=== PATIENT | male | born 1985 | race Caucasian/White ===

== ENCOUNTER 2019-01-21 06:54 | Emergency (ER) | payer OTHER ==
[~2019-01-21] VITALS: Ht 170.2 cm; Wt 72.6 kg
[2019-01-21 07:34] LABS: CLARITY,URINE CLEAR; COLOR,URINE DARK YELLOW; GLUCOSE, URINE (UA) NEGATIVE (NEGATIVE); KETONES,URINE TRACE (NEGATIVE); PH,URINE 7.5 (5-9); PROTEIN,URINE NEGATIVE (NEGATIVE)
[2019-01-21 07:35] LABS: BACTERIA,URINE TRACE /HPF; BILIRUBIN,URINE NEGATIVE (NEGATIVE); LEUKOCYTE ESTERASE ,URINE NEGATIVE (NEGATIVE); NITRITE,URINE NEGATIVE (NEGATIVE); SQUAMOUS EPITHELIAL CELL,UR RARE /HPF; UROBILINOGEN,URINE 0.2 MG/DL (NORMAL)
[2019-01-21 07:45] VITALS: BP 129/94
--- NOTE | 2019-01-21 08:06 | ED Abdominal Pain ---
General Chief Complaint: Abdominal/GI Problems Stated Complaint: ABD PAIN Nursing Triage Note: Patient reports sudden onset of right lower quadrant abdominal pain this morning at 0600 while running. He states the pain has nearly subsided, but is concerned it may be caused by his appendix. Sepsis Screen: No Definite Risk Source of Information: Patient Exam Limitations: No Limitations History of Present Illness Date Seen by Provider: Jan 21, 2019 Time Seen by Provider: 07:20 Initial Comments Patient is a 33-year-old male who presents with rapid onset right lower quadrant pain while running. Symptom onset was one hour prior to the arrival. Pain was initially radiates severe and associated with the urge to urinate. Symptoms have not resolved. Patient denies hematuria, testicular pain, flank pain. No nausea vomiting or sweats. No constipation or diarrhea. No other acute symptoms or complaints Timing/Duration: 1-3 Hours Severity/Quality: Severe Location: RLQ Radiation: No Radiation Activities at Onset: Activity Associated Symptoms: Denies Symptoms Allergies and Home Medications Allergies Coded Allergies: No Known Drug Allergies (Unverified , 01/21/19) Patient Home Medication List Home Medication List Reviewed: Yes Review of Systems Review of Systems Constitutional: no symptoms reported EENTM: No Symptoms Reported, See HPI Respiratory: No Symptoms Reported Gastrointestinal: See HPI Genitourinary: See HPI Musculoskeletal: no symptoms reported Skin: no symptoms reported Psychiatric/Neurological: No Symptoms Reported Endocrine: No Symptoms Reported Hematologic/Lymphatic: No Symptoms Reported Past Utgrppc-Sauojz-Lycicz Hx Past Med/Social Hx: Reviewed Nursing Past Med/Soc Hx Patient Social History Alcohol Use: Denies Use Recreational Drug Use: No Smoking Status: Never a Smoker 2nd Hand Smoke Exposure: No Recent Foreign Travel: No Contact w/Someone Who Travel: No Recent Infectious Disease Expo: No Recent Hopitalizations: No Physical Abuse: No Sexual Abuse: No Mistreated: No Fear: No Seasonal Allergies Seasonal Allergies: No Past Medical History Surgeries: No Respiratory: No Cardiac: No Neurological: No Genitourinary: No Gastrointestinal: No Musculoskeletal: No Endocrine: No HEENT: No Cancer: No Psychosocial: No Integumentary: No Blood Disorders: No Physical Exam Vital Signs Vital Signs - First Documented 01/21/19 07:02 Temp 98.3 Pulse 68 Resp 16 B/P (MAP) 129/94 (106) Pulse Ox 96 O2 Delivery Room Air Capillary Refill : Less Than 3 Seconds Height/Weight/BMI Height: 5'7.00" Weight: 160lbs. oz. 72.383774lg; BMI Method:Stated General Appearance: WD/WN, no apparent distress HEENT: PERRL/EOMI, normal ENT inspection Neck: full range of motion Respiratory: chest non-tender, lungs clear Cardiovascular: normal peripheral pulses, regular rate, rhythm Gastrointestinal: non tender, soft Extremities: normal range of motion, non-tender Back: normal inspection Neurologic/Psychiatric: no motor/sensory deficits, alert, oriented x 3 Focused Exam Sepsis Stage: Ruled Out Progress/Results/Core Measures Results/Orders Lab Results Laboratory Tests Test 01/21/19 07:08 Range/Units Urine Color DARK YELLOW Urine Clarity CLEAR Urine pH 7.5 5-9 Urine Specific [place] 1.025 H 1.016-1.022 Urine Protein NEGATIVE NEGATIVE Urine Glucose (UA) NEGATIVE NEGATIVE Urine Ketones TRACE H NEGATIVE Urine Nitrite NEGATIVE NEGATIVE Urine Bilirubin NEGATIVE NEGATIVE Urine Urobilinogen 0.2 NORMAL MG/DL Urine Leukocyte Esterase NEGATIVE NEGATIVE Urine RBC (Auto) NEGATIVE NEGATIVE Urine RBC NONE /HPF Urine WBC 2-5 /HPF Urine Squamous Epithelial Cells RARE /HPF Urine Crystals NONE /LPF Urine Bacteria TRACE /HPF Urine Casts NONE /LPF Urine Mucus SMALL H /LPF Urine Culture Indicated NO My Orders Orders - HOWARD BAIG DO Ua Culture If Indicated (01/21/19 07:14) Vital Signs/I&O 01/21/19 07:02 Temp 98.3 Pulse 68 Resp 16 B/P (MAP) 129/94 (106) Pulse Ox 96 O2 Delivery Room Air Blood Pressure Mean: 106 Departure Communication (Admissions) Patient remains asymptomatic in the emergency Department. His abdomen remained soft, nontender.. Etiology of patient's symptoms unclear. Will screen for kidney stone. UA negative. Recommend discharge home. Recommend increase fluids straining for possible kidney stone. Discussed that early appendicitis not fully be ruled out. Return precautions reviewed. Patient verbalizes understanding and agreement discharge instructions prior to departure Impression Primary Impression: Lower abdominal pain Disposition: 01 HOME, SELF-CARE Condition: Improved Departure-Patient Inst. Add. Discharge Instructions: You were evaluated in the emergency department for lower abdominal pain. A urine sample was tested and is non-diagnostic. The cause of your pain has not been determined, but could be related to a kidney stone or an early appendicitis. Please increase fluid intake, strain your urine for a kidney stone and avoid strenuous physical activity for the rest of the day. Return to the ED fo re-evaluation if symptoms worsen. All discharge instructions reviewed with patient and/or family. Voiced understanding. HOWARD BAIG DO Jan 21, 2019 08:06
== END 2019-01-21 07:45 | disposition home or self-care (01) ==
LOC: ER FS 06:56
DX: R10.31 Right lower quadrant pain (principal)
CPT/HCPCS: 81000; 99282

== ENCOUNTER → 2019-01-24 | Outpatient (CLI) | payer OTHER ==
--- NOTE | 2019-01-24 17:07 | Diagnostic Imaging Report ---
PROCEDURE: CT abdomen and pelvis without contrast. TECHNIQUE: Multiple contiguous axial images were obtained through the abdomen and pelvis without the use of intravenous contrast. Auto Exposure Controls were utilized during the CT exam to meet ALARA standards for radiation dose reduction. INDICATION: Five days' history of right flank pain. FINDINGS: There are no opaque urinary tract calculi and there is no hydroureteronephrosis. No perinephric or periureteric edema. The liver, gallbladder, bile ducts, spleen, adrenals, and pancreas are all unremarkable. The air-containing appendix is visualized and nonacute. Prostate, seminal vesicles, and urinary bladder appear unremarkable. Pelvic small bowel is fluid containing and borderline mildly ectatic and the distal small bowel shows some intraluminal small bowel feces. No discrete transition zone is found. Low-grade partial obstruction or nonspecific enteritis could not be differentiated. Proximally and of the stomach as well as duodenum, there is no dilatation. The colon nonacute. IMPRESSION: 1. Normal appendix. Nonfocal unobstructed urinary tracts. 2. Mild fluid-filled ectasia of pelvic small bowel with distal small bowel feces. Early partial obstruction could not be excluded and nonspecific enteritis is an additional consideration. 3. No other potential acute finding and no significant focal inflammatory process is found. Dictated by: Dictated on workstation # [id number]
== END ==
LOC: RAD FS 14:56
PROVIDERS: ATTEND Pediatrics
DX: K63.89 Other specified diseases of intestine (principal); R10.31 Right lower quadrant pain
CPT/HCPCS: 74176

== ENCOUNTER → 2019-07-02 | Outpatient (CLI) | payer OTHER ==
[~2019-07-02] MED LIST: CATHETER FLUSH 10 ML SYR IV PRN; HOLD METFORMIN - RECEIVED CONTRAST 20 ML VIAL IV SCH; IOHEXOL 350 MG/ML 100 ML (OMNIPAQUE 350) VIAL IV ONE; NS 100 ML (IVPB) BAG IV ONE
--- NOTE | 2019-07-02 14:27 | Diagnostic Imaging Report ---
PROCEDURE: CT abdomen and pelvis with contrast. TECHNIQUE: Multiple contiguous axial images were obtained through the abdomen and pelvis after administration of intravenous contrast. Auto Exposure Controls were utilized during the CT exam to meet ALARA standards for radiation dose reduction. INDICATION: Left-sided groin and testicular pain. COMPARISON: Comparison is made with prior CT from 01/24/2019. FINDINGS: The lung bases are clear. The liver and gallbladder are unremarkable. No biliary ductal dilatation is seen. The pancreas and spleen are unremarkable. No adrenal mass is detected. Kidneys are unremarkable. There is no hydronephrosis. Aorta is non-aneurysmal. The small and large bowel loops are normal caliber. No obstruction is identified. No free fluid or fluid collection is identified. No inflammatory changes are seen. Bladder is unremarkable. Prostate is unremarkable. Nonspecific mildly prominent lymph nodes in the central mesentery and right lower quadrant are seen which can be seen with mesenteric adenitis. Appendix is unremarkable. IMPRESSION: Unremarkable CT of the abdomen and pelvis apart from mildly prominent mesenteric lymph nodes which can be seen with mesenteric adenitis. The study is otherwise unremarkable. Dictated by: Dictated on workstation # [id number]
== END ==
LOC: RAD FS 10:55
PROVIDERS: ATTEND Pediatrics
DX: N50.812 Left testicular pain (principal); R10.32 Left lower quadrant pain
CPT/HCPCS: 74177

== ENCOUNTER → 2019-09-15 | Outpatient (CLI) | payer OTHER ==
--- NOTE | 2019-09-15 12:20 | Diagnostic Imaging Report ---
HISTORY: Pain and swelling in the left hand. Injury to the middle finger. TECHNIQUE: Three views of the left hand. COMPARISON: None. FINDINGS: There is a small chip fracture at the dorsal aspect of the third metacarpal head. There is overlying soft tissue swelling. Alignment currently appears normal. Joint spaces are preserved. IMPRESSION: Small nondisplaced chip fracture at the dorsal aspect of the third metacarpal head. Dictated by: Dictated on workstation # [id number]
== END ==
LOC: RAD FS 11:44
PROVIDERS: ATTEND Nurse Practitioner Family
DX: S62.393A Other fracture of third metacarpal bone, left hand, initial encounter for closed fracture (principal)
CPT/HCPCS: 73130

== ENCOUNTER → 2019-09-29 | Outpatient (CLI) | payer OTHER ==
--- NOTE | 2019-09-29 15:07 | Diagnostic Imaging Report ---
INDICATION: Fracture. COMPARISON: 09/15/2019. FINDINGS: The small chip fracture off the dorsal aspect of the 3rd metacarpal head is essentially unchanged. There is no other fracture or dislocation. The soft tissues are unremarkable. IMPRESSION: Stable chip fracture off the dorsal aspect of the 3rd metacarpal head. Dictated by: Dictated on workstation # [id number]
== END ==
LOC: RAD FS 14:36
PROVIDERS: ATTEND Nurse Practitioner Family
DX: S62.393A Other fracture of third metacarpal bone, left hand, initial encounter for closed fracture (principal); X58.XXXA Exposure to other specified factors, initial encounter
CPT/HCPCS: 73130

== ENCOUNTER → 2019-10-06 | Outpatient (CLI) | payer OTHER ==
--- NOTE | 2019-10-06 09:27 | Diagnostic Imaging Report ---
INDICATION: Left hip pain. FINDINGS: AP and frog-leg view of left hip reveal mild superior joint space narrowing and marginal spurring. There is no evidence of fracture or malalignment. There is bone island in the femoral neck. Otherwise, there is no abnormal lytic or sclerotic focus. IMPRESSION: Mild degenerative changes in the superior left hip joint with probable bone island in the left femoral neck. No acute abnormality is identified. Dictated by: Dictated on workstation # [id number]
== END ==
LOC: RAD FS 08:58
PROVIDERS: ATTEND Nurse Practitioner
DX: M16.12 Unilateral primary osteoarthritis, left hip (principal)
CPT/HCPCS: 73502